=== PATIENT | male | born 1960 | race American Indian/Alaskan Native ===

== ENCOUNTER 2018-10-11 08:01 | Day surgery (SDC) | payer OTHER, BC ==
[2018-10-11] MEDS ORDERED: Sodium Bicarbonate (8.4%) 50 Meq Syringe IVP ONE (08:14)
[2018-10-11] MEDS ORDERED: Acetylcysteine 20% Inhal Sol (30ml) ONE ×2 (08:14)
[2018-10-11] MEDS ORDERED: Iodixanol 320 MG/ML 100 ML BOTTLE IV ONE (10:04)
[2018-10-11] MEDS ORDERED: Iohexol 350mgl/ml 50 ML ONE (10:04)
[2018-10-11] MEDS ORDERED: Iodixanol 320 MG/ML 200 ML BOTTLE IV ONE (10:04)
[2018-10-11] MEDS ORDERED: Nitroglycerin 50mg in D5W 0 MG/0 ML BOTTLE IV ONE (10:04)
[2018-10-11] MEDS ORDERED: Lidocaine 2% Inj (20ml) ONE (10:09)
[2018-10-11] MEDS ORDERED: Midazolam 2 MG/2 ML VIAL ONE ×2 (10:29→10:33)
[2018-10-11 11:08] LABS: CALCIUM 8.8 mg/dL (8.4-10.5)
[2018-10-11] MEDS ORDERED: Sodium Chloride 0.9% 1,000 ML IV SCH (12:00)
[2018-10-11 12:11] VITALS: O2SAT 100
--- NOTE | 2018-10-11 12:30 | CARDCATH ---
PROCEDURE DATE: 10/11/2018 HISTORY The patient is a 58-year-old male with a history of diabetes mellitus, hypertension, hypercholesterolemia and smoking who presents to [facility] emergency room with unstable angina and a non-STEMI. He was found to have a creatinine of 2.2. He was transferred here today after aggressive IV hydration for cardiac catheterization. PROCEDURE: Left heart catheterization with coronary aortography, left ventriculogram, and PTCA and stent of LAD with a drug-eluting stent. The right femoral artery was cannulated with a 6-[place] sheath. There were no complications. I performed moderate sedation which included the presence of an independent trained observer that assisted in monitoring the patient's level of consciousness and physiologic status. After administration of Versed and fentanyl, my intra service time was 30 minutes. The findings on catheterization revealed a right dominant circulation. The RCA revealed intimal irregularities without significant stenosis. The left main artery was unremarkable. The circumflex artery and obtuse marginal branches revealed a 50-60% stenosis in the distal portion of the circumflex artery. The LAD was a large vessel and revealed a 99% stenosis in its proximal portion. The patient was started on intravenous Angiomax on the fluoroscopic guide, the guiding catheter was placed in the ostium of the left main artery. An 0.014 ATW wire was used to cross the LAD lesion. A 2.5 balloon was utilized to predilate the lesion. A 3.5 x 15 mm drug-eluting stent was placed and deployed at 16 atmospheres of pressure. Repeat coronary aortography revealed an excellent result with no residual stenosis and LEONIDAS III flow. Angio-Seal was used to close the femoral artery site. The patient tolerated the procedure well. In summary, the procedure was successful PTCA and stent of a 99% proximal LAD stenoses with a drug-eluting stent. LV function is normal. Given these findings, the patient will need to remain on aspirin indefinitely and Plavix for at least a year. PRU revealed the patient is reactive and therapeutic with Plavix. The patient will be transferred back to [facility] at 4 o'clock. The patient will need to undergo cardiac risk reduction program and stop smoking. The patient may need a stress test after and if the symptoms continue, may consider PTCA of the distal circumflex artery. Gab West MD [facility] # [id number]
[2018-10-11 16:46] VITALS: BP 130/72; PULSE 65
[2018-10-11 16:47] VITALS: RESP 18; TEMP 98
== END 2018-10-11 17:40 | disposition short-term general hospital (02) ==
LOC: CATH 08:01 → CCU 11:24 → CATH 17:40
PROVIDERS: ATTEND Internal Medicine Cardiovascular Disease
DX: I21.4 Non-ST elevation (NSTEMI) myocardial infarction (principal); I25.110 Atherosclerotic heart disease of native coronary artery with unstable angina pectoris; E11.9 Type 2 diabetes mellitus without complications; I10 Essential (primary) hypertension; E78.00 Pure hypercholesterolemia, unspecified; F17.200 Nicotine dependence, unspecified, uncomplicated
CPT/HCPCS: 36415; 80048; 85175; 85576; 87081; 93458; 99152; 99153; C1725; C1769 ×2; C1874; C1887; C2629; C9600; J0583; J1644; J2250; J3010; J7030; Q9966; Q9967